=== PATIENT | male | born 2000 | race American Indian/Alaskan Native ===

== ENCOUNTER 2021-11-05 10:28 | Emergency (ER) | payer OTHER, MEDICAID ==
[2021-11-05] MEDS ORDERED: Cyclobenzaprine 10 MG Tab PO ONE ×2 (10:29→10:52)
[2021-11-05] MEDS ORDERED: Ibuprofen 800 MG Tab PO ONE ×2 (10:29→10:53)
[2021-11-05] MEDS ORDERED: Cyclobenzaprine 10 MG Tab ONE (10:58)
[2021-11-05] MEDS ORDERED: Ibuprofen 800 MG Tab ONE (10:58)
== END 2021-11-05 11:10 | disposition home or self-care (01) ==
LOC: DL.ED 10:28
DX: S05.12XA Contusion of eyeball and orbital tissues, left eye, initial encounter (principal); V89.2XXA Person injured in unspecified motor-vehicle accident, traffic, initial encounter; Y92.410 Unspecified street and highway as the place of occurrence of the external cause
CPT/HCPCS: 99283; 99284; A9270-GY